=== PATIENT | female | born 1955 | race Caucasian/White ===

== ENCOUNTER 2025-03-03 13:00 | Emergency (ER) | payer OTHER, BC ==
[~2025-03-03] VITALS: Ht 170.2 cm; Wt 79.2 kg
[2025-03-03] MEDS ORDERED: OXYCODONE/APAP 5/325 TAB PO ONE (13:30)
[2025-03-03] MEDS ORDERED: ONDANSETRON 4 MG TAB ODT SL ONE (13:30)
[2025-03-03] MEDS ORDERED: LISINOPRIL5 MG PO (13:54)
[2025-03-03] MEDS ORDERED: OMEPRAZOLE20 MG PO (13:55)
[2025-03-03] MEDS ORDERED: KETAMINE in NS 50 MG/5 ML SYR IV ONE ×3 (14:00→14:45)
[2025-03-03] MEDS ORDERED: SODIUM CHLORIDE 0.9% 500 ML IV PRN (14:00)
[2025-03-03] MEDS ORDERED: KETAMINE in NS 50 MG/5 ML SYR ONE (14:12)
[2025-03-03] MEDS ORDERED: LORazepam 2 MG/ML VIAL IV ONE ×2 (14:30→15:00)
[2025-03-03] MEDS ORDERED: ONDANSETRON ODT8 MG PO (17:28)
[2025-03-03] MEDS ORDERED: PERCOCET 5-3251 EACH PO (17:28)
[2025-03-03] MEDS ORDERED: OXYCODONE/ACETAMINOPHEN 1 TAB HOME.PACK PO ONE (17:30)
[2025-03-03] MEDS ORDERED: ONDANSETRON 4 MG HOME.PACK SL ONE (17:45)
[2025-03-03 17:59] VITALS: BP 142/96
== END 2025-03-03 18:02 | disposition home or self-care (01) ==
LOC: ED 13:00
DX: S52.572A Other intraarticular fracture of lower end of left radius, initial encounter for closed fracture (principal); I10 Essential (primary) hypertension; E78.00 Pure hypercholesterolemia, unspecified; Z79.82 Long term (current) use of aspirin; Z79.899 Other long term (current) drug therapy; W01.0XXA Fall on same level from slipping, tripping and stumbling without subsequent striking against object, initial encounter
CPT/HCPCS: 25605; 73110; 94799; 96374; 96375; 99152; 99153; 99283-25; A9270; J2060; J2405; J3490; J7040